=== PATIENT | female | born 1990 | race Caucasian/White ===

== ENCOUNTER 2024-03-26 18:22 | Emergency (ER) | payer BC ==
[~2024-03-26] VITALS: Ht 177.8 cm; Wt 74.8 kg
[2024-03-26] MEDS ORDERED: CYCLOBENZAPRINE 10 MG TABLET ONE (18:58)
[2024-03-26] MEDS: CYCLOBENZAPRINE 10 MG TABLET PO ONE (18:59)
[2024-03-26] MEDS: IBUPROFEN 600 MG TABLET PO ONE (18:59)
[2024-03-26] MEDS ORDERED: IBUPROFEN 600 MG TABLET ONE (18:59)
[2024-03-26] MEDS ORDERED: CYCL5TAB PO (19:00)
[2024-03-26 19:05] VITALS: BP 131/77; TEMP 98.4; O2SAT 100
== END 2024-03-26 19:05 | disposition home or self-care (01) ==
LOC: ER 18:28
DX: Z04.1 Encounter for examination and observation following transport accident (principal); V89.2XXA Person injured in unspecified motor-vehicle accident, traffic, initial encounter; Y93.89 Activity, other specified; Y92.89 Other specified places as the place of occurrence of the external cause; Y99.8 Other external cause status